=== PATIENT | female | born 1945 | race Caucasian/White ===

== ENCOUNTER 2020-02-03 12:36 | Emergency (ER) | payer MEDICARE, BC ==
[2020-02-03] MEDS ORDERED: PRILOSEC20 MG/CAP PO (12:59)
[2020-02-03] MEDS ORDERED: EQ ASPIRIN325 M1 PO (12:59)
[2020-02-03] MEDS ORDERED: FOSAMAX PLUS PO (13:00)
[2020-02-03] MEDS ORDERED: ACIDOPHILUS1 CAP PO (13:00)
[2020-02-03 13:19] LABS: HEMATOCRIT 43.6 % (37.0-47.0); HEMOGLOBIN 14.6 g/dl (12.0-16.0); IMMATURE GRANULOCYTES 0.4 % (0.0-5.0); MEAN CELL VOLUME 89.2 fL CALC (80.0-100.0); MEAN CORPUSCULAR HGB 29.9 pG CALC (26.0-32.0); MEAN CORPUSCULAR HGB CONC 33.5 g/dL CAL (32.0-36.0); NEUT# 5.99 thou/uL (2.00-7.15); RED BLOOD COUNT 4.89 mill/uL (4.20-5.60); RED CELL DISTRI WIDTH 13.3 % (11.5-15.5)
[2020-02-03 13:20] LABS: GFR 54 ML/MIN (>=60 (CALC)); GFR FOR AFR.AMER. > 60 ML/MIN (>=60 (CALC))
[2020-02-03 14:02] LABS: ANION GAP 15 (6-22 (CALC)); BUN 20 mg/dL (8-23); BUN/CREATININE RATIO 24 (12-20 (CALC)); CHLORIDE 103 mmol/l (95-108); CREATININE 0.9 mg/dL (0.5-1.0); GFR > 60 ML/MIN (>=60 (CALC)); GFR FOR AFR.AMER. > 60 ML/MIN (>=60 (CALC)); POTASSIUM 5.1 mmol/l (3.5-5.1); SODIUM 133 mmol/l (137-146)
[2020-02-03 14:05] LABS: CARBON DIOXIDE 20 mmol/l (22-30)
[2020-02-03 15:15] VITALS: BP 148/68
== END 2020-02-03 15:15 | disposition home or self-care (01) ==
LOC: ED 12:36
PROVIDERS: Family Medicine
DX: I67.1 Cerebral aneurysm, nonruptured (principal); J44.9 Chronic obstructive pulmonary disease, unspecified; R22.1 Localized swelling, mass and lump, neck; I72.0 Aneurysm of carotid artery
CPT/HCPCS: Q9967

== ENCOUNTER 2020-10-11 02:44 | Emergency (ER) | payer MEDICARE, BC ==
[~2020-10-11] VITALS: Ht 175.3 cm; Wt 63.5 kg
[~2020-10-11 02:44] MED LIST: ACIDOPHILUS1 CAP PO; EQ ASPIRIN325 M1 PO; FOSAMAX PLUS PO; PRILOSEC20 MG/CAP PO
[2020-10-11 03:21] LABS: HEMATOCRIT 43.1 % (37.0-47.0); HEMOGLOBIN 14.2 g/dl (12.0-16.0); IMMATURE GRANULOCYTES 0.2 % (0.0-5.0); MEAN CELL VOLUME 89.8 fL CALC (80.0-100.0); MEAN CORPUSCULAR HGB 29.6 pG CALC (26.0-32.0); MEAN CORPUSCULAR HGB CONC 32.9 g/dL CAL (32.0-36.0); NEUT# 3.6 thou/uL (2.00-7.15); RED BLOOD COUNT 4.8 mill/uL (4.20-5.60); RED CELL DISTRI WIDTH 13.2 % (11.5-15.5)
[2020-10-11 03:37] LABS: ALBUMIN 4.2 g/dL (3.2-5.0); ALKALINE PHOSPHATASE 71 u/l (38-126); BILIRUBIN, TOTAL 0.5 mg/dL (0.0-1.4); BUN 25 mg/dL (8-23); BUN/CREATININE RATIO 27 (12-20 (CALC)); CARBON DIOXIDE 23 mmol/l (22-30); CHLORIDE 105 mmol/l (95-108); CREATININE 0.9 mg/dL (0.5-1.0); GFR > 60 ML/MIN (>=60 (CALC)); GFR FOR AFR.AMER. > 60 ML/MIN (>=60 (CALC)); SGOT/AST 39 u/l (9-36); SODIUM 136 mmol/l (137-146); TOTAL PROTEIN 7.5 g/dL (6.3-8.2)
[2020-10-11 03:38] LABS: ANION GAP 12 (6-22 (CALC)); POTASSIUM 3.8 mmol/l (3.5-5.1)
[2020-10-11 03:49] LABS: MYOGLOBIN 42 ng/mL (0 - 62)
[2020-10-11] MEDS ORDERED: BAYER ASPIRIN E81 MG PO (03:50)
[2020-10-11] MEDS ORDERED: VITAMIN D31000 UNI1 PO (03:51)
[2020-10-11] MEDS ORDERED: PLAVIX75 MG PO (03:52)
[2020-10-11] MEDS ORDERED: TIMOPTIC0.5 % OU (03:53)
[2020-10-11] MEDS ORDERED: MECLIZINE25 MG PO (05:24)
[2020-10-11 07:40] VITALS: BP 137/66
== END 2020-10-11 08:36 | disposition home or self-care (01) ==
LOC: ED 02:44
PROVIDERS: Family Medicine
DX: R42 Dizziness and giddiness (principal); J43.9 Emphysema, unspecified; K21.9 Gastro-esophageal reflux disease without esophagitis
CPT/HCPCS: J2060

== ENCOUNTER 2022-03-14 07:21 | Observation (INO) | payer MEDICARE, BC ==
[~2022-03-14] VITALS: Ht 175.3 cm; Wt 70.0 kg
[2022-03-14] VITALS (13 sets, daily range): BP systolic 118–166; BP diastolic 48–90
[~2022-03-14 07:21] MED LIST changes: +BAYER ASPIRIN E81 MG PO; +MECLIZINE25 MG PO; +PLAVIX75 MG PO; +TIMOPTIC0.5 % OU; +VITAMIN D31000 UNI1 PO
--- NOTE | 2022-03-14 07:21 | NUR ---
PT TO ROOM VIA EMS
[2022-03-14] MEDS ORDERED: METOPROL TAR25 MG PO (07:35)
[2022-03-14] MEDS ORDERED: ACIDOPHILU4 PO (07:36)
[2022-03-14] MEDS ORDERED: ASPIRIN325 MG PO (07:36)
[2022-03-14] MEDS ORDERED: METAMUCIL0.52 G2 (07:38)
[2022-03-14] MEDS ORDERED: PROAIR HFA108 MCG/AC (07:39)
[2022-03-14] MEDS ORDERED: MULTIVITAMIN1 TA1 (07:40)
[2022-03-14 08:02] LABS: HEMATOCRIT 46.7 % (37.0-47.0); HEMOGLOBIN 15.5 g/dl (12.0-16.0); IMMATURE GRANULOCYTES 0.4 % (0.0-5.0); MEAN CELL VOLUME 90.7 fL CALC (80.0-100.0); MEAN CORPUSCULAR HGB 30.1 pG CALC (26.0-32.0); MEAN CORPUSCULAR HGB CONC 33.2 g/dL CAL (32.0-36.0); NEUT# 5.71 thou/uL (2.00-7.15); RED BLOOD COUNT 5.15 mill/uL (4.20-5.60); RED CELL DISTRI WIDTH 12.9 % (11.5-15.5)
[2022-03-14 08:20] LABS: ALBUMIN 4.1 g/dL (3.2-5.0); ALKALINE PHOSPHATASE 59 u/l (38-126); ANION GAP 9 (6-22 (CALC)); BILIRUBIN, TOTAL 0.4 mg/dL (0.0-1.4); BUN 19 mg/dL (8-23); BUN/CREATININE RATIO 20 (12-20 (CALC)); CARBON DIOXIDE 29 mmol/l (22-30); CHLORIDE 105 mmol/l (95-108); GFR FOR AFR.AMER. > 60 ML/MIN (>=60 (CALC)); GFR OTHER RACES 53 ML/MIN (>=60 (CALC)); POTASSIUM 4.6 mmol/l (3.5-5.1); SGOT/AST 33 u/l (9-36); SODIUM 138 mmol/l (137-146); TOTAL PROTEIN 7.2 g/dL (6.3-8.2)
[2022-03-14 08:21] LABS: INTERNATIONAL NORMALIZED RATIO 0.9 RATIO (0.7-1.3); PROTHROMBIN TIME 9.7 SECONDS (9.0-12.5)
--- NOTE | 2022-03-14 09:32 | NUR ---
PATIENT HAS RETURNED FROM CT. URINE SENT TO LAB. CALLED [facility] TO CANCEL SCHEDULED APPT. ALSO CALLED CONNOR MERA, EMERGENCY CONTACT, TO INFORM HER THAT THE PATIENT IS AT [facility]. BOTH CALLS AT THE REQUEST OF PATIENT.
[2022-03-14 09:33] LABS: URINE BILIRUBIN - DIPSTICK NEGATIVE (NEGATIVE); URINE BLOOD DIPSTICK NEGATIVE (NEGATIVE); URINE COLOR YELLOW; URINE GLUCOSE - DIPSTICK NEGATIVE (NEGATIVE); URINE KETONE NEGATIVE (NEGATIVE); URINE LEUK ESTERASE NEGATIVE (NEGATIVE); URINE PH 6.5 (4.5-8.0); URINE PROTEIN - DIPSTICK NEGATIVE (NEG-TRACE); URINE UROBILINOGEN - DIPSTICK 0.2 E.U./dL (0.2)
[2022-03-14 09:34] LABS: URINE NITRITE - DIPSTICK NEGATIVE (Negative)
--- NOTE | 2022-03-14 10:37 | NUR ---
PATIENT INFORMED ABOUT ADMISSION.
--- NOTE | 2022-03-14 12:30 | NUR ---
RECEIVE PATIENT AND REPORT FROM SHARON. ALESIA DIAS. PATIENT ALERT AND ORIENTED X3. PATIENT STABLE AT THIS TIME. NOT REFER PAIN AT THIS TIME. PATIENT IS EDUCATED ABOUD ADMISSION AND NURSING PLAN. PT REFER UNDERSTAND.
--- NOTE | 2022-03-14 16:10 | NUR ---
PATIENT STABLE RESTING IN BED.
--- NOTE | 2022-03-14 20:00 | NUR ---
PATIENT SITTING UP IN BED-AWAKE ALERT AND ORIENTEDX3. PATIENT ADMITTED FOR CHEST PAIN. MEDICATED WITH ULTRAM ORDERED FROR PAIN. TELE MONITOR IN PLACE-[id number]. SALINE LOCK TO RAc intact and healthy with good blood return . LUNGS ARE CLEAR. ABD IS SOFT WITH ACTIVE BS. DENIES ANY DIFFICULTY WITH URINATION. NO PERIPHERAL EDEMA NOTED. PULSES ARE PALPABLE. SAFETY PRECAUTIONS REINFORCED. CALL LIGHT IN REACH. WILL CONT TO MONITOR.
--- NOTE | 2022-03-14 22:42 | NUR ---
RESTING IN BED-STATES SOME RELIEF FROM PAIN MED EARLIER. PROVIDED WITH HS SNACK. TROP BEING DRAWN ORDERED. TELE MONITOR IN PLACE. SALINE LOCK INTACT. CALL LIGHT IN REACH. WILL CONT TO MONITOR.
--- NOTE | 2022-03-14 23:44 | NUR ---
RESTING IN BED-EYES CLOSED RESPS ARE EVEN AND UNLABORED. TROP WAS NEG. TELE MONITOR IN PLACE. CALL LIGHT IN REACH. WILL CONT TO MONITOR.
[2022-03-15 00:17] VITALS: BP 126/60
--- NOTE | 2022-03-15 02:47 | NUR ---
PATIENT CALLED AND Assisted patient to br to void. slightly unsteady on her feet. NO C/O OF ANY CHEST PAIN AT THIS TIME. MN TROP WAS NEG. TELE MONITOR IN PLACE. SAFETY PRECAUTIONS REINFORCED. CALL LIGHT IN REACH. WILL CONT TO MONITOR.
[2022-03-15 03:55] VITALS: BP 148/66
--- NOTE | 2022-03-15 04:53 | NUR ---
PATIENT C/O EPIGASTRIC AND CHEST PAIN. VS TAKEN AND RECORDED. SKIN IS WARM AND DRY. SKIN IS WARM AND DRY. PATIENT WITH FINE TREMORS OF HANDS NOTED. MEDICATED FOR PAIN WITH ULTRAM 50MG PO. SAFETY PRECAUTIONS REINFORCED. CALL LIGHT IN REACH. WILL CONT TO MONITOR.
--- NOTE | 2022-03-15 04:55 | NUR ---
PATIENT RESTING IN BED-STATES THAT HER PAIN IS IMPROVED AND NOW ONLY 2/10 ON PAIN SCALE. CALL LIGHT IN REACH. WILL CONT TO MONITOR.
[2022-03-15 07:11] VITALS: BP 127/60
[2022-03-15 07:11] LABS: CHOLESTEROL HDL RATIO 2.7 (<4.4 (CALC)); MAGNESIUM 2.1 mg/dL (1.6-2.3)
--- NOTE | 2022-03-15 08:15 | NUR ---
RESTING QUIETLY IN BED, NO SIGNS OR SYMPTOMS OF DISTRESS NOTED OR VOICED, ALERT/ORIENTED TIMES 3.
[2022-03-15 10:52] VITALS: BP 129/62
--- NOTE | 2022-03-15 11:55 | NUR ---
PATIENT DISCHARGED HOME IN STABLE CONDISTION, INSTRUCTIONS GIVEN AND UNDERSTANDING VERBALIZED, IV REMOVED.
== END 2022-03-15 11:52 | disposition home or self-care (01) ==
LOC: ED 07:21 → ED-I 10:14 → ED 10:53 → MS2 10:54
PROVIDERS: Family Medicine; ADMIT Internal Medicine; ATTEND Internal Medicine
DX: R07.9 Chest pain, unspecified (principal); R42 Dizziness and giddiness; I10 Essential (primary) hypertension; J44.9 Chronic obstructive pulmonary disease, unspecified; R91.1 Solitary pulmonary nodule; K21.9 Gastro-esophageal reflux disease without esophagitis; F17.200 Nicotine dependence, unspecified, uncomplicated; Z95.828 Presence of other vascular implants and grafts; Z86.79 Personal history of other diseases of the circulatory system; Z20.822 Contact with and (suspected) exposure to COVID-19
CPT/HCPCS: G0378; J1650; Q9967

== ENCOUNTER 2023-01-26 09:21 | Emergency (ER) | payer MEDICARE, BC ==
[~2023-01-26] VITALS: Ht 172.7 cm; Wt 70.0 kg
[2023-01-26] VITALS (8 sets, daily range): BP systolic 55–137; BP diastolic 34–76
[~2023-01-26 09:21] MED LIST changes: +ACIDOPHILU4 PO; +ASPIRIN325 MG PO; +METAMUCIL0.52 G2; +METOPROL TAR25 MG PO; +MULTIVITAMIN1 TA1; +PROAIR HFA108 MCG/AC
[2023-01-26 09:46] LABS: BASO% 0.5 % (0-3); EOS% 1.7 % (0-8); HEMATOCRIT 46.4 % (37.0-47.0); HEMOGLOBIN 15.2 g/dl (12.0-16.0); IMMATURE GRANULOCYTES 0.2 % (0.0-5.0); LYMPH% 21.8 % (15-41); MEAN CELL VOLUME 91.2 fL CALC (80.0-100.0); MEAN CORPUSCULAR HGB 29.9 pG CALC (26.0-32.0); MEAN CORPUSCULAR HGB CONC 32.8 g/dL CAL (32.0-36.0); MONO% 5.8 % (2-13); NEUT# 4.12 thou/uL (2.00-7.15); RED BLOOD COUNT 5.09 mill/uL (4.20-5.60); RED CELL DISTRI WIDTH 12.6 % (11.5-15.5)
[2023-01-26 09:54] LABS: ALBUMIN 4.2 g/dL (3.2-5.0); ALKALINE PHOSPHATASE 58 u/l (38-126); ANION GAP 13 (6-22 (CALC)); BILIRUBIN, TOTAL 0.4 mg/dL (0.02-1.3); BUN 25 mg/dL (8-23); BUN/CREATININE RATIO 24 (12-20 (CALC)); CARBON DIOXIDE 24 mmol/l (22-30); CHLORIDE 105 mmol/l (95-108); GFR FOR AFR.AMER. > 60 ML/MIN (>=60 (CALC)); GFR OTHER RACES 53 ML/MIN (>=60 (CALC)); POTASSIUM 4.5 mmol/l (3.5-5.1); SGOT/AST 44 u/l (9-36); SODIUM 137 mmol/l (137-146); TOTAL PROTEIN 7.5 g/dL (6.3-8.2)
[2023-01-26 10:11] LABS: URINE BILIRUBIN - DIPSTICK NEGATIVE (NEGATIVE); URINE BLOOD DIPSTICK NEGATIVE (NEGATIVE); URINE COLOR YELLOW; URINE GLUCOSE - DIPSTICK NEGATIVE (NEGATIVE); URINE KETONE NEGATIVE (NEGATIVE); URINE LEUK ESTERASE NEGATIVE (NEGATIVE); URINE PROTEIN - DIPSTICK NEGATIVE (NEG-TRACE); URINE SPECIFIC GRAVITY 1.025; URINE UROBILINOGEN - DIPSTICK 0.2 E.U./dL (0.2)
[2023-01-26 10:13] LABS: URINE NITRITE - DIPSTICK NEGATIVE (Negative)
[2023-01-26] MEDS ORDERED: PROMETHAZINE HY25 M1 PO (10:28)
== END 2023-01-26 12:01 | disposition home or self-care (01) ==
LOC: ED 09:21
PROVIDERS: Family Medicine
DX: R07.9 Chest pain, unspecified (principal); J44.9 Chronic obstructive pulmonary disease, unspecified; K21.9 Gastro-esophageal reflux disease without esophagitis; F17.210 Nicotine dependence, cigarettes, uncomplicated; Z87.442 Personal history of urinary calculi; Z73.3 Stress, not elsewhere classified